=== PATIENT | female | born 1960 | race Caucasian/White ===

== ENCOUNTER 2020-05-31 07:37 | Emergency (ER) | payer OTHER ==
[~2020-05-31 07:37] MED LIST: LEVOTHYROXINE75 MCG PO; PRINIVIL20 MG PO; VITAMIN B-121000 MC1 PO; VITAMIN D5000 UNI1 PO
[2020-05-31 08:06] LABS: BASOPHIL 1.1 % (0-2); EOSINOPHIL 1.8 % (0-5); HCT 42.7 % (37.0-47.0); MCH 29.6 pg (25.0-31.0); MCHC 32.8 g/dL (32.0-36.0); MCV 90.3 fL (78.0-100.0); MONOCYTE 6.9 % (0-12); MPV 9.5 fL (6.0-9.5); NEUTROPHIL 67.5 % (41-80); NRBC 0; PLT 209 K/uL (150-400); RBC 4.73 M/uL (4.20-5.40); RDW 13.4 % (11.5-14.0); WBC 5.5 K/uL (4.0-10.5)
[2020-05-31 08:24] LABS: ALBUMIN 3.9 g/dL (3.4-5.0); BILIRUBIN - TOTAL 0.9 mg/dL (0.2-1.0); BUN/CREAT RATIO (CALC) 18.9 RATIO; CREATININE 0.74 mg/dL (0.51-0.95); GLOBULIN (CALCULATION) 3.4 g/dL; POTASSIUM 3.6 mmol/L (3.5-5.1); TOTAL PROTEIN 7.3 g/dL (6.4-8.2)
[2020-05-31] MEDS ORDERED: NAPROXEN500 MG PO (11:07)
[2020-05-31] MEDS ORDERED: PERCOCET 10-321 EACH PO ×2 (11:07→11:21)
[2020-05-31] MEDS ORDERED: ZOFRAN4 M1 PO (11:07)
== END 2020-05-31 15:13 | disposition home or self-care (01) ==
LOC: FER 07:37
PROVIDERS: Emergency Medicine
DX: S82.832A Other fracture of upper and lower end of left fibula, initial encounter for closed fracture (principal); M54.16 Radiculopathy, lumbar region; I10 Essential (primary) hypertension; W19.XXXA Unspecified fall, initial encounter; Y92.009 Unspecified place in unspecified non-institutional (private) residence as the place of occurrence of the external cause
CPT/HCPCS: 36415; 72131; 72192; 73552; 73590; 80053; 85025; J1170; J2405; J2550; J7030

== ENCOUNTER 2020-06-02 22:16 | Emergency (ER) | payer OTHER ==
[~2020-06-02 22:16] MED LIST changes: +NAPROXEN500 MG PO; +PERCOCET 10-321 EACH PO; +ZOFRAN4 M1 PO
== END 2020-06-02 22:49 | disposition home or self-care (01) ==
LOC: FER 22:16
DX: Z46.89 Encounter for fitting and adjustment of other specified devices (principal)
CPT/HCPCS: 99282